=== PATIENT | male | born 1950 | race Caucasian/White ===

== ENCOUNTER → 2017-03-19 | Outpatient (CLI) | payer OTHER, MEDICARE | LOC: BHFA 09:00 | PROVIDERS: ATTEND Internal Medicine Interventional Cardiology | DX: R07.9 Chest pain, unspecified (principal) | CPT/HCPCS: 78452; 93017; A9500 ==

== ENCOUNTER 2017-08-06 07:35 | Observation (INO) | payer OTHER, MEDICARE ==
[2017-08-06] MEDS ORDERED: DIAZEPAM 5 MG TAB PO ONE (07:39)
[2017-08-06] MEDS ORDERED: NS 1,000 ML IV ONE (07:39)
[2017-08-06] MEDS ORDERED: ASPIRIN EC 325 MG TAB PO ONE ×2 (07:39→08:06)
[2017-08-06] MEDS ORDERED: FAMOTIDINE 20 MG TAB PO ONE (07:39)
[2017-08-06] MEDS ORDERED: diphenhydrAMINE 25 MG CAP PO ONE ×2 (07:39→08:06)
--- NOTE | 2017-08-06 08:01 | CPEKG ---
Heart Rate: 50 RR Interval: 1200 P-R Interval: 192 QRSD Interval: 104 QT Interval: 452 QTC Interval: 413 P [place]: 62 QRS [place]: 28 T Wave [place]: 29 EKG Severity - BORDERLINE ECG - EKG Impression: SINUS RHYTHM EKG Impression: BORDERLINE INFERIOR Q WAVES Electronically Signed By: Maame Zafar 06-Aug-2017 09:53:45
[2017-08-06] MEDS ORDERED: FAMOTIDINE 20 MG TAB ONE (08:06)
[2017-08-06] MEDS ORDERED: DIAZEPAM 5 MG TAB ONE (08:07)
[2017-08-06 08:21] LABS: % IMMATURE GRANULYOCYTES 0.4 % (0.0-1.1); ABSOLUTE IMMATURE GRANULOCYTES 0.03 10^3/uL (0.00-0.10); ADD DIFF? NO; ADD MORPH? NO; ADD SCAN? NO; ATYPICAL LYMPHOCYTE FLAG 0 (0-99); FRAGMENT RBC FLAG 0 (0-99); HEMATOCRIT 49.1 % (40.0-51.0); HEMOGLOBIN 16.2 g/dL (13.7-17.5); LEFT SHIFT FLG 0 (0-99); LIPEMIA HEMOLYSIS FLAG 80 (0-99); MEAN CELL VOLUME 87.8 fL (81.5-99.8); MEAN PLATELET VOLUME 9.9 fL (8.7-11.7); PLATELET CLUMPS FLAG 0 (0-99); PLATELET COUNT 210 10^3/uL (150-400); RED BLOOD CELL COUNT 5.59 10^6/uL (4.40-6.38); RED CELL DISTRIBUTION WIDTH 13.2 % (11.5-15.2)
[2017-08-06 08:29] LABS: INR 1.11 (0.83-1.16); PROTIME(PATIENT) 14.2 SEC (12.0-15.0)
[2017-08-06 08:34] LABS: ANION GAP 13 mEq/L (8-16); CALCIUM 9.1 mg/dL (8.5-10.4); CARBON DIOXIDE 26 mEq/l (22-31); CHLORIDE 103 mEq/L (97-110); CHOLESTEROL 154 mg/dL (140-220); CHOLESTEROL/HDL RATIO 3.76 RATIO (1.00-4.97); CREATININE 0.9 mg/dL (0.7-1.3); GLOMERULAR FILTRATION RATE > 60; GLUCOSE 85 mg/dL (70-100); HIGH DENSITY LIPOPROTEIN 41 mg/dL (40-65); LDL/HDL RATIO 2.24 RATIO (1.00-3.64); LOW DENSITY LIPOPROTEIN 92 mg/dL (80-100); MAGNESIUM 2.2 mg/dL (1.6-2.3); NON-HIGH DENSITY LIPOPROTEIN 113 mg/dL (90-129); POTASSIUM 4.3 mEq/L (3.5-5.2); SODIUM 142 mEq/L (134-144); TRIGLYCERIDE 107 mg/dL (40-150); VERY LOW DENSITY LIPOPROTEINS 21 mg/dL (8-25)
--- NOTE | 2017-08-06 08:44 | PDPROPOC ---
Sedation Plan of Care Sedation Plan of Care: vital signs stable, mental status noted, patient educated of risks, benefits, alternatives, patient can tolerate sedation ASA Classification: ASA 3 Planned drugs: fentanyl, midazolam, other (Etomidate) Mallampati Score: Class 3 Mallampati Reference Image: Patient passed 3-3-2 rule?: Yes
--- NOTE | 2017-08-06 08:46 | PDHPUP ---
History & Physical Update H&P update statement: This history and physical update is based on an assessment of the patient which was completed after admission or registration (within 24 hours), but prior to the surgery/procedure. H&P update: H&P reviewed & patient examined, no change in patient's condition since H&P completed (please note low risk stress test, CCS class IV angina)
[2017-08-06] MEDS ORDERED: LIDOCAINE 1% 300 MG/30 ML SDV ONE (08:57)
[2017-08-06] MEDS ORDERED: fentaNYL 100 MCG/2 ML INJ ONE (08:57)
[2017-08-06] MEDS ORDERED: MIDAZOLAM 2 MG/2 ML VIAL ONE (08:58)
[2017-08-06] MEDS ORDERED: IOPAMIDOL (ISOVUE-370) 150 ML BTL IV ONE ×3 (08:58→11:06)
[2017-08-06] MEDS ORDERED: VERAPAMIL 5 MG/2 ML VIAL ONE (08:58)
[2017-08-06] MEDS ORDERED: HEPARIN 10,000 UNIT/10 ML MDV ONE ×2 (08:58→10:51)
[2017-08-06] MEDS ORDERED: ATROPINE SULFATE 1 MG/10 ML SYR ONE (09:57)
--- NOTE | 2017-08-06 10:55 | PDDXCAT ---
Diagnostic Cath Note - . Date: 08/06/17 [employer] Specialist: Filipe Indication: other (CCS Class IV angina with suspected balanced ischemia on nuclear stress) - Procedure Access: right wrist Procedure: left heart catheterization, coronary angiography, left ventriculogram , other (IVUS of LAD and LCIRC, STENT oflad and LCIRC) - Materials Left Heart Cath size: 5F Left Heart Cath materials: standard multipack (JL4, JR4, pigtail) - Findings-Left Heart Catheterization LM: 9mm in size. It bifurcates into an LAD and circumflex system. There is evidence of ostial disease estimated at 20% luminal narrowing with dilation of the distal left main, proximal to the LAD bifurcation. LAD: 5mm in size proximately with a 45-50% proximal stenosis which is heavily calcified at the level of the first diagonal takeoff. Mid LAD distal to the second diagonal takeoff there is an 85% angiographic stenosis which is relatively long and diffuse. There is KELI III flow to the distal vessel. There is 70-80% stenosis of distal LAD near the apex. LCX: 4-5mm vessel prox with 50% eccentric stenosis near its takeoff toward the left main. The second obtuse marginal branch is 2.25mm in size and is diffusely diseased over a long segment. Maximal luminal stenosis is 85%. KELI III flow throughout the circumflex obtuse marginal circulation. RCA: Dominant. 3mm in size with KELI III flow. Previously stented with overlapping stents. There is 10% restenosis in the distal stented segment near the acute margin of the heart. EDP: LVEDP is mildly elevated at 16mmHg. LVEF: LVEF is 60% with no segmental wall motion abnormalities, no significant MR or prolapse. There was no gradient upon pull back across the aortic valve indicating no evidence of aortic stenosis. 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 There is no evidence of aortic aneurysm or disection. Complications: NONE. Estimated blood loss: <50ml Closure method: Angioseal Assessment: Severe [place] vessel CAD as previously described with widely patent coronary stents. Flow limited obstrucction of the distal LAD and second obtuse marginal branch were both successfully stented. The patient has normal EF with mildly elevated end diastolic pressure. Plan: Overnight admission to monitor telemetry post stent implantation. Aggressive medical management is recommended to decrease the risk of rapid atherosclerosis progression. Dual antiplatelet therapy with Aspirin 325mg for the first month followed by Aspirin 81mg along with Plavix 75mg daily should be continued for at least 1 year following drug eluting stent implantation. No elective surgery for the first 3 months. Decisions to stop dual antiplatelet therapy before 1 year should involve our office [facility]. Intervention: Several 6 jamaican guiding catheters were used for guide catheter support ultimately a 6 Fr CLS 3.5 was used. Intravascular ultrasound was accomplished demonstrating 77% plaque stenosis in the lesion in the mid LAD. The mid LAD was subsequently stented with a 3 x28 and post dilated at high pressure with a 3.25/ 15mm Non compliant Emerge balloon. There is 0% residual stenosis with KELI III flow pre and post stent implantation. IVUS was repeated to look at the proximal LAD, because of the angiographic appearance, which was suggestive of flow limiting obstruction. The IVUS demonstrated concentric calcification with a preserved lumen in this region. Cross sectional area was greater than 6 mm squared. The wire was redirected to the left circumflex across a lesion in the distal obtuse margin that was angiographically an 85 to 90% stenosis with KELI III flow. IVUS was performed to check an eccentric lesion in the proximal circumflex. IVUS demonstrated that there is moderate atherosclerotic plaque that does not appear to be flow limiting in the proximal left circumflex. The patient then underwent pre stent angioplasty with a 2.0/15 Emerge balloon in the second obtuse marginal. A 2.25/24 Synergy drug eluting stent was then implanted at a maximum pressure of 14 atmospheres, with 0% residual stenosis and KELI III flow of circumflex obtuse marginal branch post stent implantation. Final impression: Successful 2 vessel IVUS and stent implantation.
[2017-08-06] MEDS ORDERED: HYDROCODONE/APAP 5/325 TAB PO PRN (11:14)
[2017-08-06] MEDS ORDERED: CLOPIDOGREL BISULFATE 75 MG TAB PO ONE (11:14)
[2017-08-06] MEDS ORDERED: LORazepam 2 MG/ML INJ IVP PRN (11:14)
[2017-08-06] MEDS ORDERED: ATROPINE SULFATE 1 MG/10 ML SYR IVP PRN (11:14)
[2017-08-06] MEDS ORDERED: ONDANSETRON 4 MG/2 ML VIAL IVP PRN (11:14)
[2017-08-06] MEDS ORDERED: OXYCODONE/APAP 5/325 TAB PO PRN (11:14)
[2017-08-06] MEDS ORDERED: NITROGLYCERIN 0.4 MG BTL SL PRN (11:14)
[2017-08-06] MEDS ORDERED: TEMAZEPAM 15 MG CAP PO PRN (11:14)
[2017-08-06] MEDS ORDERED: NS 1,000 ML IV SCH (11:15)
[2017-08-06] MEDS ORDERED: CLOPIDOGREL BISULFATE 75 MG TAB ONE (11:17)
--- NOTE | 2017-08-06 11:50 | CPEKG ---
Heart Rate: 48 RR Interval: 1250 P-R Interval: 196 QRSD Interval: 106 QT Interval: 460 QTC Interval: 411 P [place]: 48 QRS [place]: 10 T Wave [place]: 22 EKG Severity - ABNORMAL ECG - EKG Impression: SINUS BRADYCARDIA EKG Impression: INFERIOR INFARCT, OLD Electronically Signed By: Maame Zafar 06-Aug-2017 12:03:29
[2017-08-07 04:21] VITALS: TEMP 97.8
[2017-08-07 05:13] LABS: % IMMATURE GRANULYOCYTES 0.4 % (0.0-1.1); ABSOLUTE IMMATURE GRANULOCYTES 0.04 10^3/uL (0.00-0.10); ADD DIFF? NO; ADD MORPH? NO; ADD SCAN? NO; ATYPICAL LYMPHOCYTE FLAG 0 (0-99); FRAGMENT RBC FLAG 0 (0-99); HEMATOCRIT 45.9 % (40.0-51.0); HEMOGLOBIN 15.1 g/dL (13.7-17.5); LEFT SHIFT FLG 0 (0-99); LIPEMIA HEMOLYSIS FLAG 80 (0-99); MEAN CELL HEMOGLOBIN 28.6 pg (27.9-34.1); MEAN CELL HEMOGLOBIN CONCENTR. 32.9 g/dL (32.4-36.7); MEAN CELL VOLUME 86.9 fL (81.5-99.8); MEAN PLATELET VOLUME 9.7 fL (8.7-11.7); PLATELET CLUMPS FLAG 0 (0-99); PLATELET COUNT 198 10^3/uL (150-400); RED BLOOD CELL COUNT 5.28 10^6/uL (4.40-6.38); RED CELL DISTRIBUTION WIDTH 13.1 % (11.5-15.2)
[2017-08-07 05:15] LABS: ALBUMIN 3.7 g/dL (3.5-5.0); ANION GAP 11 mEq/L (8-16); ASPARTATE AMINOTRANSFERASE 51 IU/L (17-59); BILIRUBIN,TOTAL 0.7 mg/dL (0.1-1.4); CARBON DIOXIDE 25 mEq/l (22-31); CHLORIDE 106 mEq/L (97-110); GLOMERULAR FILTRATION RATE > 60; GLUCOSE 90 mg/dL (70-100); LACTATE DEHYDROGENASE 497 IU/L (313-618); MAGNESIUM 2.1 mg/dL (1.6-2.3); POTASSIUM 4.2 mEq/L (3.5-5.2); SODIUM 142 mEq/L (134-144)
[2017-08-07 07:44] VITALS: BP 160/73; PULSE 60; RESP 18; O2SAT 96
[2017-08-07] MEDS ORDERED: CLOPIDOGREL BISULFATE 75 MG TAB PO SCH (09:00)
[2017-08-07] MEDS ORDERED: ASPIRIN EC 325 MG TAB PO SCH (09:00)
--- NOTE | 2017-08-07 09:02 | CPEKG ---
Heart Rate: 49 RR Interval: 1224 P-R Interval: 188 QRSD Interval: 106 QT Interval: 444 QTC Interval: 401 P [place]: 68 QRS [place]: 51 T Wave [place]: 24 EKG Severity - BORDERLINE ECG - EKG Impression: SINUS BRADYCARDIA EKG Impression: BORDERLINE INFERIOR Q WAVES Electronically Signed By: Maame Zafar 07-Aug-2017 11:55:57
--- NOTE | 2017-08-07 17:04 | ASDISCHSUM ---
Discharge Information Plan Status:Home with No Needs Medically Cleared to Leave:08/07/2017 Discharge Date:08/07/2017 12:16 PM CM D/C Disposition:Home, Routine, Self-Care ADT D/C Disposition:Home, Routine, Self-Care Projected Discharge Date:08/07/2017 12:00 AM Transportation at D/C: Discharge Delay Reason: Follow-Up Date:08/07/2017 12:00 AM Discharge Slot: Final Diagnosis: Placement Information Patient Contact Information Contact Name:LATANYA Relationship: Address:[address] [place] [address] City:[place] Alternate Phone: [facility]/Zip Code:[place] [address] Email: Financial Information Financial Class: Primary Plan Desc:MEDICARE OUTPATIENT Primary Plan Number:[id number] Secondary Plan Desc:[employer]/MDR SUPPLEMENT Secondary Plan Number:[id number] Assessment Information Intervention Information Intervention Type:*FUNES-Signed Date of Service:08/07/2017 10:24 AM Patient Type:Observation Staff Member:Rosamaria Peña Hours: Discipline: Severity: Comment:
--- NOTE | 2017-08-07 17:38 | GDS ---
[f rep st] DISCHARGE SUMMARY ADMIT DIAGNOSES: 1. Chest pain. 2. Known coronary artery disease with previous stents. 3. Abnormal nuclear stress test. 4. Plan cardiac angiogram with possible stent placement. DISCHARGE DIAGNOSES: 1. Coronary artery disease. 2. Stent placement to left anterior descending and obtuse marginal. 3. Hypertension. HOSPITAL COURSE: He was admitted for cardiac catheterization after having an abnormal nuclear stress test. He has known history of coronary artery disease and has had past stents placed. It was recom mended that he proceed with cardiac angiogram them probable stent placement. He was taken to the cat h lab by Dr. Mian Dent. Finding an LAD lesion of 70% to 80% and circumflex OM lesion of 85%. Two vessel URIEL was performed and PCI with no complications. He then was taken to PCU for overnight obs ervation, where he has done well. He has no chest pain or shortness of breath. His wrist radial sit e is intact with no bleeding or induration. Bilateral pulses are equal. He has good sensation in fi ngers. Capillary refill is normal. He has been up ambulating with no problems. He is eager for dis charge. He does have followup appointments, and does plan to go to cardiac rehab. MEDICATIONS: He will go home on: Pravastatin 20 mg daily. Lisinopril 40 mg daily. Fish oil 1,000 mg daily. Herbal supplements 1 daily. Aspirin enteric-coated 325 mg for 1 month, then can decrease to 81 mg enteric-coated daily. Plavix 75 mg daily for 1 year. DISCHARGE PLAN: After 3 months should he need elective surgery, this can be arranged. He will parti cipate in cardiac rehab. He will follow up in clinic in 7-10 days. Appointments have been made. Dr. Mian Dent did visit with he and his and reviewed films with them, answering all questions . At this time, he currently is stable for discharge. /[id number]/MODL
== END 2017-08-07 12:16 | disposition home or self-care (01) ==
LOC: FCATH 07:35 → F2W 11:15
PROVIDERS: ADMIT Internal Medicine Cardiovascular Disease; ATTEND Internal Medicine Cardiovascular Disease
PROC: 027135Z Dilation of Coronary Artery, Two Arteries with Two Drug-eluting Intraluminal Devices, Percutaneous Approach (ICD-10-PCS; principal; 2017-08-06)
PROC: B2111ZZ Fluoroscopy of Multiple Coronary Arteries using Low Osmolar Contrast (ICD-10-PCS; principal; 2017-08-06)
PROC: B241ZZ3 Ultrasonography of Multiple Coronary Arteries, Intravascular (ICD-10-PCS; principal; 2017-08-06)
PROC: 4A023N7 Measurement of Cardiac Sampling and Pressure, Left Heart, Percutaneous Approach (ICD-10-PCS; principal; 2017-08-06)
PROC: B2151ZZ Fluoroscopy of Left Heart using Low Osmolar Contrast (ICD-10-PCS; principal; 2017-08-06)
DX: I25.119 Atherosclerotic heart disease of native coronary artery with unspecified angina pectoris (principal); E78.5 Hyperlipidemia, unspecified; I10 Essential (primary) hypertension
CPT/HCPCS: 92978; 92979; 93005; 93458; C1725; C1753; C1769; C1874; C1887; C9600; J1644; J2250; J3010; Q9967; J0461

== ENCOUNTER → 2018-12-22 | Outpatient (CLI) | payer OTHER | LOC: BHFA 09:00 | PROVIDERS: ATTEND Internal Medicine Cardiovascular Disease | DX: I25.10 Atherosclerotic heart disease of native coronary artery without angina pectoris (principal); I10 Essential (primary) hypertension; E78.5 Hyperlipidemia, unspecified ==

== ENCOUNTER → 2019-04-25 | Outpatient (CLI) | payer OTHER, MEDICARE | LOC: FIMAGING 10:16 ==